=== PATIENT | male | born 1930 | race Caucasian/White ===

== ENCOUNTER 2017-02-13 10:08 | Emergency (ER) | payer OTHER, BC ==
--- NOTE | 2017-02-13 11:15 | DIAGNOSTIC IMAGING REPORT ---
PROCEDURE: CT HEAD WITHOUT CONTRAST INDICATION: TRAUMA/INJURY TECHNIQUE: Axial CT images were acquired through the head. Coronal and sagittal reformations were created. COMPARISON: None. FINDINGS: No intracranial hemorrhage or extraaxial fluid collections. Ventricles are normal in size, shape and position. There is no mass, mass effect or midline shift. The ashton-white matter differentiation is normal. There is no edema. The calvarium is intact. There is fluid in both maxillary sinuses. The extracranial soft tissues and orbits are normal. IMPRESSION: 1. No CT evidence of acute intracranial process. 2. Fluid in both maxillary sinuses. 3. Findings discussed with Dr. Wright at 11:[address] scans at this facility use dose modulation, iterative reconstruction, and/or weight-based dosing when appropriate to reduce radiation dose to as low as reasonably achievable.
--- NOTE | 2017-02-13 12:20 | ED CLINICAL REPORT ---
Clinical Report - Physicians/Mid Levels Merg[facility] With [facility] [address] [place] [address] 02/13/2017 10:14 Patient: THERON GUTIERREZ Time Seen: 10:25; initial patient contact. Arrived- By private vehicle. Historian- patient. HISTORY OF PRESENT ILLNESS Location of injuries- head. Chief Complaint: INJURY TO HEAD. Occurred at home. The patient sustained a single light blow (small box from a shelf). The patient complains of mild pain. The patient sustained a mild blow to the head and was dazed. No neck pain or loss of consciousness. REVIEW OF SYSTEMS No weakness, loss of vision, vomiting, bladder dysfunction or laceration. All systems otherwise negative, except as recorded above. PAST HISTORY Gout. High blood pressure . Heart block. Sleep Apnea. A fib SURGERIES: Heart bypass . Knee Surgery. Tonsillectomy. Medications: Iron Oral 325 mg, daily. Carvedilol Oral 25 mg . Aspir-81 Oral. Warfarin Sodium Oral 5 mg, daily. Valerian Root Oral. Atorvastatin Calcium Oral 80 mg, daily. Tamsulosin HCl Oral 0.4 mg, daily. Ranitidine Acid Test Equipment Mechanic Oral 300 mg . Vit D-Vit E-Safflower Oil External. Calcium Citrate + D Oral. Omeprazole Oral 40 mg, daily. Potassium Chloride ER Oral (Tablet Extended Release 10 meq) 1 tablet. Docusate Sodium Oral (Capsule 250 mg) 1 capsule. Enalapril Maleate Oral 20 mg, daily. Furosemide Oral 40 mg, daily. Allopurinol Oral (Tablet 300 mg) 1 tablet, daily. Citric Acid-Sodium Citrate Oral. Allergies: No Known Drug Allergy. SOCIAL HISTORY Former smoker. Occasional alcohol use. No drug use. ADDITIONAL NOTES The nursing notes have been reviewed. PHYSICAL EXAM Vital Signs: 02/13/2017 10:20 BP: 148/61. HR: 76. RR: 18. O2 saturation: 97%. Temp: 97.7 F. Have been reviewed. Hypertensive. Heart rate normal. Respiratory rate normal. Temperature normal. Oxygen saturation normal. Appearance: Alert. No acute distress. Head: Head non-tender. No swelling of head. Vertex: mild tenderness and small ecchymosis. No erythema, swelling, laceration, puncture wound or deformity. Eyes: Pupils equal, round and reactive to light. EOM intact. ENT: No dental injury. Pharynx normal. Neck: Painless ROM. Neck non-tender. CVS: Abnormal rhythm, which is irregularly irregular. Heart sounds normal. Rate normal. Respiratory: No respiratory distress. Breath sounds normal. Skin: Skin intact. Skin warm and dry. Extremities: Extremities atraumatic. Neuro: Oriented X 3. Mood/affect normal. Speech normal. No motor deficit. Normal gait. No sensory deficit. LABS, X-RAYS, AND EKG CT Head: (1. No CT evidence of acute intracranial process. 2. Fluid in both maxillary sinuses.). Head CT performed without contrast. The study was independently viewed by me, interpreted by the radiologist and discussed with the radiologist. Prior studies were not available for comparison. Interpretation time: 12:19. PROGRESS AND PROCEDURES Disposition: Discharged home in good and improved condition. Condition: good. CLINICAL IMPRESSION Single contusion to the head.No skin abrasion. Oral anticoagulation therapy with therapeutic INR. INSTRUCTIONS Your Current Medications: CONTINUE TAKING THE FOLLOWING MEDICATIONS: Allopurinol Oral : Tablet 300 mg, 1 tablet daily. Aspir-81 Oral. Atorvastatin Calcium Oral : 80 mg daily. Calcium Citrate + D Oral. Carvedilol Oral : 25 mg. Citric Acid-Sodium Citrate Oral. Docusate Sodium Oral : Capsule 250 mg, 1 capsule. Enalapril Maleate Oral : 20 mg daily. Furosemide Oral : 40 mg daily. Iron Oral : 325 mg daily. Omeprazole Oral : 40 mg daily. Potassium Chloride ER Oral : Tablet Extended Release 10 meq, 1 tablet. Ranitidine Acid Test Equipment Mechanic Oral : 300 mg. Tamsulosin HCl Oral : 0.4 mg daily. Valerian Root Oral. Vit D-Vit E-Safflower Oil External. Warfarin Sodium Oral : 5 mg daily. Follow-up: Follow up with your doctor in about four days. Call for an appointment. Blood pressure screening was not performed during this visit because the patient has an active diagnosis of hypertension. (Electronically signed by Jaycob Wright Dr. 02/13/2017 12:23)
--- NOTE | 2017-02-13 12:20 | ED ORDER SUMMARY ---
..... Patient: THERON GUTIERREZ OrderSheet [facility] VisitID: [id number] [place] [address] 86y, M Registration Date/Time: 02/13/2017 ORDER SHEET Weight: 93.4 kg (stated) Allergies: No Known Drug Allergy GENERAL ORDERS: CT Head wo Cont (On Warfarin) Urgent (10:02/13/2017 Nirmal Cristina) (Ack 10:35 Jamil) (10:51 LWhalen R.N.) CBC w Diff Urgent (:02/13/2017 Nirmal Cristina) (Ack 10:35 Jamil) (10:51 LWhalen R.N.) CMP Urgent (:02/13/2017 Nirmal Cristina) (Ack 10:35 Jamil) (10:51 LWhalen R.N.) PT with INR Urgent (10:02/13/2017 Nirmal Cristina) (Ack 10:35 Jamil) (10:51 LWhalen R.N.) PTT Urgent (10:02/13/2017 Nirmal Cristina) (Ack 10:35 Jamil) (10:51 LWhalen R.N.) MEDICATION ORDERS: IV FLUIDS: IV Saline Lock (02/13/2017 Nirmal Cristina) (Ack 10:51 LWhalen R.N.) ORDER SHEET NOTES: [Electronically signed by Jaycob Wright Dr. (12:02/13/2017)] [Electronically signed by Srikanth David R.N. (:02/15/2017)] [Electronically locked/signed by Srikanth David R.N. (:02/15/2017)]
--- NOTE | 2017-02-13 12:20 | ED NURSING NOTES ---
Clinical Report - Nurses [facility] [address] [place] [address] 02/13/2017 10:14 Patient: THERON GUTIERREZ [facility] [id number] TRIAGE Triage time 10:21 Feb 13 2017. Acuity: LEVEL 2. Chief Complaint: INJURY TO HEAD. --10:36 Srikanth David R.N. 10:20 02/13/17. BP: 148/61. HR: 76. RR: 18. O2 saturation: 97%. Temp: 97.7 F. Pain level now 0/10. --10:36 Srikanth David R.N. SUSANNA COMA SCORE: Susanna Coma Scale: 15- eyes open spontaneously (4); best verbal response- oriented x 4 (5); best motor response- obeys commands (6). --12:33 Srikanth David R.N. Weight: 93.4 kg stated. Height/Length: 68 inches Per Patient. BMI: 31.3. --10:34 Srikanth David R.N. Medications Citric Acid-Sodium Citrate Oral. --10:24 Srikanth David R.N. Allopurinol Oral (Tablet 300 mg) 1 tablet, daily. --10:24 Srikanth David R.N. Furosemide Oral 40 mg, daily. --10:24 Srikanth David R.N. Enalapril Maleate Oral 20 mg, daily. --10:25 Srikanth David R.N. Docusate Sodium Oral (Capsule 250 mg) 1 capsule. --10:25 Srikanth David R.N. Potassium Chloride ER Oral (Tablet Extended Release 10 meq) 1 tablet. --10:26 Srikanth David R.N. Omeprazole Oral 40 mg, daily. --10:26 Srikanth David R.N. Calcium Citrate + D Oral. --10:26 Srikanth David R.N. Vit D-Vit E-Safflower Oil External. --10:27 Srikanth David R.N. Ranitidine Acid Pier Hand Helper Oral 300 mg . --10:27 Srikanth David R.N. Tamsulosin HCl Oral 0.4 mg, daily. --10:28 Srikanth David R.N. Atorvastatin Calcium Oral 80 mg, daily. --10:28 Srikanth David R.N. Valerian Root Oral. --10:28 Srikanth David R.N. Warfarin Sodium Oral 5 mg, daily. --10:29 Srikanth David R.N. Aspir-81 Oral. --10:29 Srikanth David R.N. Carvedilol Oral 25 mg . --10:29 Srikanth David R.N. Iron Oral 325 mg, daily. --10:30 Srikanth David R.N. Allergies No Known Drug Allergy. --10:36 Srikanth David R.N. History Arrived by private vehicle. Historian: patient. Accompanied by family. This occurred last night. Mechanism of injury: a blow. ( Was grabbing dog food and a box of CD's hit his head. He is on blood thinners and is now feeling dizzy and lightheaded.). He has had a headache. ( Feeling dizzy). No loss of consciousness. PAST MEDICAL HX: Hypertension. Heart disease. No history of diabetes mellitus or lung disease. Immunizations: up-to-date. SOCIAL HX: Former smoker, end date 1968. Occasional alcohol use. No drug use. No infectious disease exposure. SELF HARM ASSESSMENT: A self harm assessment was performed. The patient answered "no" to the question "Have you recently felt down, depressed, or hopeless?" and "Do you have thoughts of harming or killing yourself?". FALL RISK ASSESSMENT: Fall risk assessment completed. No fall risk identified. NUTRITIONAL RISK ASSESSMENT: The nutritional risk assessment revealed no deficiencies. FUNCTIONAL ASSESSMENT: Functional assessment: no impairments noted. LEARNING NEEDS ASSESSMENT: The learning needs assessment revealed no barriers. ABUSE ASSESSMENT: Abuse assessment: (yes) The patient was asked "Do you feel safe in your home?". SKIN INTEGRITY ASSESSMENT: Skin integrity risk assessment completed. No skin integrity risk identified. --10:36 Srikanth David R.N. PROBLEMS: Gout. High blood pressure . Heart block. Sleep Apnea. --10:33 Srikanth David R.N. ADDITIONAL SURGERIES: Heart bypass . Knee Surgery. Tonsillectomy. --10:33 Srikanth David R.N. Interventions ID band on patient. --10:36 Srikanth David R.N. PHYSICAL ASSESSMENT To room via wheelchair. GENERAL / NEURO / PSYCH: Alert. Oriented X 4. Appears in no acute distress. Pupillary exam: Right pupil 3mm and reactive. Left pupil: 1mm and reactive. HEENT: Left parietal area: tenderness. ( bruise on the top of his head). Mouth within normal limits upon inspection. Voice within normal limits. No nasal injury noted. No dental injury noted. Mucous membranes are pink. RESPIRATORY: Respirations not labored. CVS: Capillary refill less than 2 seconds. BACK: No neck or back tenderness. ROM normal to the neck and back. SKIN: Skin is warm and dry. --10:50 Srikanth David R.N. NURSING PROGRESS NOTES 10:40 02/13/2017 Site #1 started via IV in the right wrist with an 20g angiocath; one attempt. Blood drawn: rainbow set. Labeled in the presence of the patient and sent to the lab. Saline lock flushed with 10 mL saline. --10:46 Srikanth David R.N. The initial plan of care for this patient includes an assessment with efforts to address patient positioning, appropriate ambient lighting and comfortable environmental temperature. Pulse oximeter applied. Patient gowned. Head of bed elevated 90 degrees. Reassurance given. Call light placed in reach. Side rails up x 1. Bed placed in lowest position. Brakes of bed on. --10:51 Srikanth David R.N. 12:26 02/13/17. BP: 116/55. HR: 58. RR: 16. O2 saturation: 95%. Temp: 98.4 F. Pain level now 0/10. 12:00 02/13/17. BP: 114/41. HR: 57. RR: 18. O2 saturation: 94%. 11:45 02/13/17. BP: 114/41. HR: 57. RR: 15. O2 saturation: 94%. 11:15 02/13/17. BP: 127/52. HR: 55. RR: 18. O2 saturation: 94%. 11:00 02/13/17. BP: 118/48. HR: 59. RR: 16. O2 saturation: 95%. 10:45 02/13/17. BP: 116/62. HR: 63. RR: 18. O2 saturation: 96%. 10:30 02/13/17. BP: 119/49. HR: 70. RR: 18. O2 saturation: 97%. 10:20 02/13/17. BP: 148/61. HR: 76. RR: 18. O2 saturation: 97%. Temp: 97.7 F. Pain level now 0/10. --12:33 Srikanth David R.N. DISPOSITION / DISCHARGE Departure time: 12:Feb 13 2017. Condition at departure: improved. No learning barriers present. Discharge instructions provided and reviewed with the patient. Reviewed warnings. Reviewed medication(s). Treatments reviewed. Reviewed referrals. Patient verbalized understanding. Written instructions provided in Urdu. The patient was discharged home and accompanied by spouse. He left the Emergency Department ambulatory and via private vehicle. Spouse driving. --12:28 Srikanth David R.N. 12:26 02/13/17. BP: 116/55. HR: 58. RR: 16. O2 saturation: 95%. Temp: 98.4 F. Pain level now 0/10. --12:28 Srikanth David R.N. 12:18 02/13/2017 Site #1 removed upon discharge. Catheter intact. Pressure dressing applied. --12:29 Srikanth David R.N. Locked/Released at 02/15/2017 13:31 by Srikanth David R.N.
--- NOTE | 2017-02-13 12:20 | ED ORDER SUMMARY ---
..... Patient: THERON GUTIERREZ OrderSheet [facility] VisitID: [id number] [place] [address] 86y, M Registration Date/Time: 02/13/2017 ORDER SHEET Weight: 93.4 kg (stated) Allergies: No Known Drug Allergy GENERAL ORDERS: CT Head wo Cont (On Warfarin) Urgent (10:02/13/2017 Nirmal Cristina) (Ack 10:35 Jamil) (10:51 LWhalen R.N.) CBC w Diff Urgent (:02/13/2017 Nirmal Cristina) (Ack 10:35 Jamil) (10:51 LWhalen R.N.) CMP Urgent (:02/13/2017 Nirmal Cristina) (Ack 10:35 Jamil) (10:51 LWhalen R.N.) PT with INR Urgent (10:02/13/2017 Nirmal Cristina) (Ack 10:35 Jamil) (10:51 LWhalen R.N.) PTT Urgent (10:02/13/2017 Nirmal Cristina) (Ack 10:35 Jamil) (10:51 LWhalen R.N.) MEDICATION ORDERS: IV FLUIDS: IV Saline Lock (02/13/2017 Nirmal Cristina) (Ack 10:51 LWhalen R.N.) ORDER SHEET NOTES: [Electronically signed by Jaycob Wright Dr. (12:02/13/2017)] [Electronically signed by Srikanth David R.N. (:02/15/2017)] [Electronically locked/signed by Srikanth David R.N. (:02/15/2017)]
--- NOTE | 2017-02-15 13:31 | ED MED RECONCILIATION SUMMARY ---
Patient: THERON GUTIERREZ Medication Reconciliation Report [facility] VisitID: [id number] [address] [place] [address] 86y, M Registration Date/Time: 02/13/2017 Weight: 93.4 kg Height/Length: 68 in. BMI: 31.3 ALLERGIES: No Known Drug Allergy The patient's Home Medications are listed below: CONTINUE TAKING THE FOLLOWING MEDICATIONS: Allopurinol Oral (300 mg) 1 tablet, daily Aspir-81 Oral Atorvastatin Calcium Oral 80 mg, daily Calcium Citrate + D Oral Carvedilol Oral 25 mg Citric Acid-Sodium Citrate Oral Docusate Sodium Oral (250 mg) 1 capsule Enalapril Maleate Oral 20 mg, daily Furosemide Oral 40 mg, daily Iron Oral 325 mg, daily Omeprazole Oral 40 mg, daily Potassium Chloride ER Oral (10 meq) 1 tablet Ranitidine Acid Checkering Machine Adjuster Oral 300 mg Tamsulosin HCl Oral 0.4 mg, daily Valerian Root Oral Vit D-Vit E-Safflower Oil External Warfarin Sodium Oral 5 mg, daily The source(s) of the original Home Medication information: Not obtained. The following Medications were given to the patient in the Emergency Department: None. The following Medications were prescribed to the patient: None.
--- NOTE | 2017-02-15 13:31 | ED MAR SUMMARY ---
..... Medication Administration Record [facility] [address] [place], [place] [id number] Patient: THERON GUTIERREZ Visit ID: [id number] 86y, M Weight: 93.4 kg Height/Length: 68 in BMI: 31.3 ALLERGIES: No Known Drug Allergy
--- NOTE | 2017-02-15 13:31 | ED MED RECONCILIATION SUMMARY ---
Patient: THERON GUTIERREZ Medication Reconciliation Report [facility] VisitID: [id number] [address] [place] [address] 86y, M Registration Date/Time: 02/13/2017 Weight: 93.4 kg Height/Length: 68 in. BMI: 31.3 ALLERGIES: No Known Drug Allergy The patient's Home Medications are listed below: CONTINUE TAKING THE FOLLOWING MEDICATIONS: Allopurinol Oral (300 mg) 1 tablet, daily Aspir-81 Oral Atorvastatin Calcium Oral 80 mg, daily Calcium Citrate + D Oral Carvedilol Oral 25 mg Citric Acid-Sodium Citrate Oral Docusate Sodium Oral (250 mg) 1 capsule Enalapril Maleate Oral 20 mg, daily Furosemide Oral 40 mg, daily Iron Oral 325 mg, daily Omeprazole Oral 40 mg, daily Potassium Chloride ER Oral (10 meq) 1 tablet Ranitidine Acid System Specialist Oral 300 mg Tamsulosin HCl Oral 0.4 mg, daily Valerian Root Oral Vit D-Vit E-Safflower Oil External Warfarin Sodium Oral 5 mg, daily The source(s) of the original Home Medication information: Not obtained. The following Medications were given to the patient in the Emergency Department: None. The following Medications were prescribed to the patient: None.
--- NOTE | 2017-02-15 13:31 | ED MAR SUMMARY ---
..... Medication Administration Record [facility] [address] [place], [place] [id number] Patient: THERON GUTIERREZ Visit ID: [id number] 86y, M Weight: 93.4 kg Height/Length: 68 in BMI: 31.3 ALLERGIES: No Known Drug Allergy
--- NOTE | 2017-02-15 13:31 | ED DISCHARGE INSTRUCTIONS ---
Patient: THERON GUTIERREZ General Instructions [facility] VisitID: [id number] [place] [address] 86y, M Registration Date/Time: 02/13/2017 Single contusion to the head.No skin abrasion. Oral anticoagulation therapy with therapeutic INR. INSTRUCTIONS Your Current Medications: CONTINUE TAKING THE FOLLOWING MEDICATIONS: Allopurinol Oral : Tablet 300 mg, 1 tablet daily. Aspir-81 Oral. Atorvastatin Calcium Oral : 80 mg daily. Calcium Citrate + D Oral. Carvedilol Oral : 25 mg. Citric Acid-Sodium Citrate Oral. Docusate Sodium Oral : Capsule 250 mg, 1 capsule. Enalapril Maleate Oral : 20 mg daily. Furosemide Oral : 40 mg daily. Iron Oral : 325 mg daily. Omeprazole Oral : 40 mg daily. Potassium Chloride ER Oral : Tablet Extended Release 10 meq, 1 tablet. Ranitidine Acid Die Cast Supervisor Oral : 300 mg. Tamsulosin HCl Oral : 0.4 mg daily. Valerian Root Oral. Vit D-Vit E-Safflower Oil External. Warfarin Sodium Oral : 5 mg daily. Follow-up: Follow up with your doctor in about four days. Call for an appointment. Blood pressure screening was not performed during this visit because the patient has an active diagnosis of hypertension. ADDITIONAL INFORMATION Scalp Contusion [No Wake-Up] A scalp contusion is a bruise with swelling and sometimes bleeding under the skin. The swelling should start to go down within two days. Although there is no sign of a serious injury at this time, symptoms may appear later. These could be a sign of a more serious problem (bruising or bleeding in the brain). Therefore, watch for the warning signs below. Home Care: During the next 24 hours someone must stay with you to check for the signs below. It is not necessary to stay awake or be awakened during the night. If you have swelling of the face or scalp, apply an ice pack (ice cubes in a plastic bag, wrapped in a towel) for 20 minutes. Do this every 1-2 hours until the swelling starts to go down. You may use acetaminophen (Tylenol) or ibuprofen (Motrin, Advil) to control pain, unless another pain medicine was prescribed. [ NOTE : If you have chronic liver or kidney disease or ever had a stomach ulcer or GI bleeding, talk with your doctor before using these medicines.] For the next 24 hours: Do not take alcohol, sedatives or medicines that make you sleepy. Do not drive or operate machinery. Avoid strenuous activities. No lifting or straining. If you have had any symptoms of a concussion today (nausea, vomiting, dizziness, confusion, headache, memory loss or if you were knocked out), do not return to sports or any activity that could result in another head injury until all symptoms are gone and you have been cleared by your doctor. A second head injury before fully recovering from the first one can lead to serious brain injury. Follow Up with your doctor if symptoms are not improving after 24 hours, or as directed. [NOTE: Any X-rays or CT scans taken will be reviewed by a radiologist. You will be notified of any new findings that may affect your care.] Get Prompt Medical Attention if any of the following occur: Repeated vomiting Severe or worsening headache or dizziness Unusual drowsiness, or unable to awaken as usual Confusion or change in behavior or speech, memory loss, blurred vision Convulsion (seizure) Increasing scalp or face swelling Redness, warmth or pus from the swollen area Fluid drainage or bleeding from the nose or ears Fever of 100.4F(38C) or higher, or as directed by your healthcare provider You have been given the following additional information: Scalp Contusion, No Wake Up (Electronically signed by Jaycob Wright Dr. 02/13/2017 12:23)
== END 2017-02-13 12:30 | disposition home or self-care (01) ==
LOC: ED SRH 10:08
DX: S00.93XA Contusion of unspecified part of head, initial encounter (principal); Z79.01 Long term (current) use of anticoagulants; W22.09XA Striking against other stationary object, initial encounter; Y93.9 Activity, unspecified; Y92.009 Unspecified place in unspecified non-institutional (private) residence as the place of occurrence of the external cause; Y99.9 Unspecified external cause status; I48.91 Unspecified atrial fibrillation; I51.9 Heart disease, unspecified; I10 Essential (primary) hypertension; Z79.82 Long term (current) use of aspirin
CPT/HCPCS: 90100; 94001; 94060; 95059